=== PATIENT | female | born 1940 | race Caucasian/White ===

== ENCOUNTER 2016-08-21 08:53 | Emergency (ER) | payer OTHER ==
[~2016-08-21] VITALS: Ht 149.9 cm; Wt 47.5 kg
[~2016-08-21 08:53] MED LIST: AMITIZA8 MICROGRA PO; BUPROPION XL150 MG PO; CIPRO500 MG PO; DOCUSATE SODIU100 MG PO; DOXYCYCLINE HY100 MG PO; FLAGYL500 MG PO; HYDROXYZINE HCL25 MG PO; LIPITOR80 MG PO; NASONEX17 GM BOTH NARES; NEXIUM40 MG PO; PROAIR HFA8.5 GM IH; SERTRALINE HCL50 MG PO; SINGULAIR10 MG PO; TRAMADOL HCL50 MG PO; VALIUM5 MG PO; WELLBUTRIN XL150 MG PO; WELLBUTRIN XL300 MG PO; ZOFRAN ODT8 MG PO; ZOLOFT100 MG PO
[2016-08-21 09:48] LABS: EOSINOPHIL (%) 0.9 % (0-5); EOSINOPHIL COUNT 0.1 K/uL (0-0.3); HEMATOCRIT 41.7 % (36.0-46.0); IMMATURE GRANULOCYTE (%) 0.3 % (0.0-0.7); INSTRUMENT ABS NEUTROPHIL CT 5.3 K/uL; LYMPHOCYTE COUNT 1.3 K/uL (1.0-2.8); MCH 31.8 PG (29.0-34.0); MCHC 32.9 G/DL (30.0-36.0); MCV 96.8 FL (83-99); MEAN PLAT.VOLUME 8.6 uM^3 (9.5-12.4); MONOCYTE (%) 9.2 % (3-12); MONOCYTE COUNT 0.7 K/uL (0-0.8); NEUTROPHIL (%) 72.1 % (45-76); NEUTROPHIL COUNT 5.3 K/uL (1.8-6.4); PLATELET COUNT 193 K/uL (156-360); RBC DIS.WIDTH-CV 13.3 % (11.8-14.6); RBC DIS.WIDTH-SD 48.2 % (39-53); RED BLOOD COUNT 4.31 M/uL (3.80-5.20); WHITE BLOOD COUNT 7.4 K/uL (4.1-10.2)
[2016-08-21 09:58] LABS: CHLORIDE 106 mEq/L (99-109); POTASSIUM 4.1 mEq/L (3.7-5.4); SODIUM 140 mEq/L (136-147)
[2016-08-21 09:59] LABS: GLUCOSE 97 mg/dL (70-99)
[2016-08-21 10:01] LABS: ANION GAP 8 MEQ/L (2-14)
[2016-08-21 10:03] LABS: GFR ESTIMATE (CALCULATED) > 59 mL/min/
[2016-08-21 10:04] LABS: UREA NITROGEN (BUN) 5 mg/dL (9-23)
[2016-08-21 10:09] LABS: INFLUENZA A VIRAL ANTIGEN POSITIVE; INFLUENZA B VIRAL ANTIGEN POSITIVE
[2016-08-21] MEDS ORDERED: TAMIFLU75 MG PO (10:43)
[2016-08-21 10:56] VITALS: BP 117/72
== END 2016-08-21 10:57 | disposition home or self-care (01) ==
LOC: EME 08:53
PROVIDERS: Emergency Medicine
DX: J10.1 Influenza due to other identified influenza virus with other respiratory manifestations (principal); E78.5 Hyperlipidemia, unspecified; J45.909 Unspecified asthma, uncomplicated; K21.9 Gastro-esophageal reflux disease without esophagitis
CPT/HCPCS: 71020; 80048; 85025; 87502; 93005; 99281; 99284

== ENCOUNTER 2016-10-27 12:41 | Emergency (ER) | payer OTHER ==
[~2016-10-27] VITALS: Ht 152.4 cm; Wt 50.6 kg
[~2016-10-27 12:41] MED LIST changes: +TAMIFLU75 MG PO
[2016-10-27 14:07] LABS: HEMATOCRIT 41.1 % (36.0-46.0); MCH 31.6 PG (29.0-34.0); MCHC 32.6 G/DL (30.0-36.0); MCV 96.9 FL (83-99); MEAN PLAT.VOLUME 8.7 uM^3 (9.5-12.4); PLATELET COUNT 211 K/uL (156-360); RBC DIS.WIDTH-SD 49.5 % (39-53); RED BLOOD COUNT 4.24 M/uL (3.80-5.20); WHITE BLOOD COUNT 8.3 K/uL (4.1-10.2)
[2016-10-27 14:16] LABS: CHLORIDE 105 mEq/L (99-109); POTASSIUM 4.5 mEq/L (3.7-5.4); SODIUM 140 mEq/L (136-147)
[2016-10-27 14:17] LABS: GLUCOSE 105 mg/dL (70-99)
[2016-10-27 14:19] LABS: ANION GAP 6 MEQ/L (2-14)
[2016-10-27 14:21] LABS: GFR ESTIMATE (CALCULATED) > 59 mL/min/
[2016-10-27 14:22] LABS: UREA NITROGEN (BUN) 13 mg/dL (9-23)
[2016-10-27 14:36] LABS: ADD MIUA? YES; BILIRUBIN NEGATIVE; BLOOD NEGATIVE; COLOR YELLOW ((YELLOW)); GLUCOSE (STRIP) NEGATIVE; KETONES NEGATIVE; LEUKOCYTES SMALL; NITRITE NEGATIVE; PROTEIN (STRIP) NEGATIVE; SPECIFIC GRAVITY 1.013 (1.000-1.030); UROBILINOGEN 0.2 MG/DL (0.2-1.0)
[2016-10-27 14:41] LABS: BACTERIA RARE /HPF; EPITHELIAL CELLS RARE /HPF; MUCUS TRACE /LPF; RED BLOOD CELLS 0-5 /HPF (0-5); UCUL ADDED? NO; WHITE BLOOD CELLS 0-5 /HPF (0-5)
[2016-10-27] MEDS ORDERED: PYRIDIUM100 MG PO (15:14)
[2016-10-27] MEDS ORDERED: KEFLEX500 MG PO (15:14)
[2016-10-27 15:38] VITALS: BP 142/79
== END 2016-10-27 15:39 | disposition home or self-care (01) ==
LOC: EME 12:41
DX: R30.0 Dysuria (principal); E78.5 Hyperlipidemia, unspecified; K21.9 Gastro-esophageal reflux disease without esophagitis; J45.909 Unspecified asthma, uncomplicated; Z87.440 Personal history of urinary (tract) infections; Z91.040 Latex allergy status; Z88.2 Allergy status to sulfonamides; Z88.1 Allergy status to other antibiotic agents
CPT/HCPCS: 80048; 81003; 85027; 87086; 99281; 99283

== ENCOUNTER 2017-03-31 10:52 | Emergency (ER) | payer OTHER ==
[~2017-03-31] VITALS: Ht 152.4 cm; Wt 52.2 kg
[~2017-03-31 10:52] MED LIST changes: +KEFLEX500 MG PO; +PYRIDIUM100 MG PO
[2017-03-31 11:40] LABS: HEMATOCRIT 42.6 % (36.0-46.0); MCH 32.2 PG (29.0-34.0); MCHC 33.6 G/DL (30.0-36.0); MCV 95.9 FL (83-99); PLATELET COUNT 259 K/uL (156-360); RBC DIS.WIDTH-CV 14.2 % (11.8-14.6); RBC DIS.WIDTH-SD 50.1 % (39-53); RED BLOOD COUNT 4.44 M/uL (3.80-5.20); WHITE BLOOD COUNT 13.9 K/uL (4.1-10.2)
[2017-03-31 11:52] LABS: CHLORIDE 105 mEq/L (99-109); POTASSIUM 3.7 mEq/L (3.7-5.4); SODIUM 143 mEq/L (136-147)
[2017-03-31 11:54] LABS: GLUCOSE 141 mg/dL (70-99)
[2017-03-31 11:55] LABS: ANION GAP 10 MEQ/L (2-14)
[2017-03-31 11:58] LABS: GFR ESTIMATE (CALCULATED) > 59 mL/min/
[2017-03-31 11:59] LABS: UREA NITROGEN (BUN) 10 mg/dL (9-23)
[2017-03-31] MEDS ORDERED: TESSALON200 MG PO (12:16)
[2017-03-31 12:33] VITALS: BP 142/70
== END 2017-03-31 12:36 | disposition home or self-care (01) ==
LOC: EME 10:52
DX: J06.9 Acute upper respiratory infection, unspecified (principal); J45.909 Unspecified asthma, uncomplicated; E78.5 Hyperlipidemia, unspecified; K21.9 Gastro-esophageal reflux disease without esophagitis; F41.9 Anxiety disorder, unspecified; K22.70 Barrett's esophagus without dysplasia; Z91.040 Latex allergy status; Z88.2 Allergy status to sulfonamides; Z88.1 Allergy status to other antibiotic agents
CPT/HCPCS: 71020; 80048; 85027; 99281; 99284

== ENCOUNTER 2017-06-28 20:18 | Emergency (ER) | payer OTHER ==
[~2017-06-28] VITALS: Ht 152.4 cm; Wt 51.8 kg
[~2017-06-28 20:18] MED LIST changes: +TESSALON200 MG PO
[2017-06-28] MEDS ORDERED: VIBRAMYCIN100 MG PO (23:26)
[2017-06-28] MEDS ORDERED: ULTRACET1 TABLET PO (23:28)
[2017-06-28] MEDS ORDERED: MOTRIN600 MG PO (23:28)
[2017-06-28 23:51] VITALS: BP 159/90
== END 2017-06-28 23:52 | disposition home or self-care (01) ==
LOC: EME 20:18 → EXP 20:18
DX: L03.115 Cellulitis of right lower limb (principal); K21.9 Gastro-esophageal reflux disease without esophagitis; E78.5 Hyperlipidemia, unspecified; J45.909 Unspecified asthma, uncomplicated; F41.9 Anxiety disorder, unspecified; Z87.19 Personal history of other diseases of the digestive system; Z90.49 Acquired absence of other specified parts of digestive tract; Z89.202 Acquired absence of left upper limb, unspecified level; Z88.2 Allergy status to sulfonamides; Z88.1 Allergy status to other antibiotic agents
CPT/HCPCS: 93971; 99281; 99284

== ENCOUNTER 2017-09-06 08:49 | Emergency (ER) | payer OTHER ==
[~2017-09-06] VITALS: Ht 152.4 cm; Wt 50.5 kg
[~2017-09-06 08:49] MED LIST changes: +MOTRIN600 MG PO; +ULTRACET1 TABLET PO; +VIBRAMYCIN100 MG PO
[2017-09-06 09:33] LABS: HEMATOCRIT 40.3 % (36.0-46.0); MCH 32.4 PG (29.0-34.0); MCHC 34.7 G/DL (30.0-36.0); MCV 93.3 FL (83-99); PLATELET COUNT 231 K/uL (156-360); RBC DIS.WIDTH-SD 47.8 % (39-53); RED BLOOD COUNT 4.32 M/uL (3.80-5.20); WHITE BLOOD COUNT 8.4 K/uL (4.1-10.2)
[2017-09-06 09:58] LABS: ALBUMIN 3.8 G/DL (3.2-4.8); ALKALINE PHOSPHATASE 71 IU/L (3-129); ALT (GPT) 22 IU/L (3-49); AST (GOT) 23 IU/L (2-34); CHLORIDE 106 MEQ/L (99-109); CREATININE 0.5 MG/DL (0.6-1.3); GFR ESTIMATE (CALCULATED) > 59 mL/min/; GLUCOSE 91 mg/dL (70-99); POTASSIUM 4.7 MEQ/L (3.7-5.4); SODIUM 139 MEQ/L (136-147); TOTAL BILIRUBIN 0.6 MG/DL (0.0-1.0); TOTAL PROTEIN 6.6 G/DL (6.4-8.3); UREA NITROGEN (BUN) 10 mg/dL (9-23)
[2017-09-06 10:33] LABS: APPEARANCE CLEAR ((CLEAR)); BILIRUBIN NEGATIVE; BLOOD NEGATIVE; COLOR YELLOW ((YELLOW)); GLUCOSE (STRIP) NEGATIVE; KETONES NEGATIVE; LEUKOCYTES TRACE; NITRITE NEGATIVE; PROTEIN (STRIP) NEGATIVE; SPECIFIC GRAVITY 1.012 (1.000-1.030); UROBILINOGEN 0.2 MG/DL (0.2-1.0)
[2017-09-06 10:44] LABS: BACTERIA RARE /HPF; EPITHELIAL CELLS RARE /HPF; MUCUS TRACE /LPF; RED BLOOD CELLS 0-5 /HPF (0-5); UCUL ADDED? NO; WHITE BLOOD CELLS 0-5 /HPF (0-5)
[2017-09-06 11:17] LABS: TROP-I INTERPRETATION NEGATIVE; TROPONIN-I < 0.01 ng/mL (0.0-0.30)
[2017-09-06 13:03] LABS: TROP-I INTERPRETATION NEGATIVE; TROPONIN-I < 0.01 ng/mL (0.0-0.30)
[2017-09-06] MEDS ORDERED: ZOFRAN ODT4 MG PO (13:33)
[2017-09-06] MEDS ORDERED: BENTYL20 MG PO (13:33)
[2017-09-06] MEDS ORDERED: PERCOCET 5/31 TABLET PO (13:34)
[2017-09-06 14:27] VITALS: BP 125/67
== END 2017-09-06 14:27 | disposition home or self-care (01) ==
LOC: EME 08:49
PROVIDERS: Nurse Practitioner Family
DX: R10.32 Left lower quadrant pain (principal); R11.2 Nausea with vomiting, unspecified; I47.2 Ventricular tachycardia; E78.5 Hyperlipidemia, unspecified; F41.9 Anxiety disorder, unspecified; J45.909 Unspecified asthma, uncomplicated; K21.9 Gastro-esophageal reflux disease without esophagitis; Z88.1 Allergy status to other antibiotic agents; Z88.2 Allergy status to sulfonamides; Z91.040 Latex allergy status; Z89.202 Acquired absence of left upper limb, unspecified level
CPT/HCPCS: 71046; 74177; 80053; 81003; 84484; 85027; 93005; 99281; 99285; J2405; J3010; J7030

== ENCOUNTER 2017-09-08 13:40 | Emergency (ER) | payer OTHER ==
[~2017-09-08] VITALS: Ht 152.4 cm; Wt 50.3 kg
[~2017-09-08 13:40] MED LIST changes: +BENTYL20 MG PO; +PERCOCET 5/31 TABLET PO; +ZOFRAN ODT4 MG PO
[2017-09-08 15:47] LABS: HEMATOCRIT 39.7 % (36.0-46.0); HEMOGLOBIN 13.7 G/DL (11.9-15.5); MCH 32.6 PG (29.0-34.0); MCHC 34.5 G/DL (30.0-36.0); MCV 94.5 FL (83-99); PLATELET COUNT 209 K/uL (156-360); RBC DIS.WIDTH-CV 14.1 % (11.8-14.6); RBC DIS.WIDTH-SD 48.4 % (39-53); WHITE BLOOD COUNT 8.6 K/uL (4.1-10.2)
[2017-09-08 15:50] LABS: APPEARANCE CLEAR ((CLEAR)); BILIRUBIN NEGATIVE; BLOOD NEGATIVE; COLOR YELLOW ((YELLOW)); GLUCOSE (STRIP) NEGATIVE; KETONES NEGATIVE; LEUKOCYTES NEGATIVE; NITRITE NEGATIVE; PROTEIN (STRIP) NEGATIVE; SPECIFIC GRAVITY 1.012 (1.000-1.030); UROBILINOGEN 0.2 MG/DL (0.2-1.0)
[2017-09-08 16:02] LABS: CHLORIDE 109 mEq/L (99-109); SODIUM 145 mEq/L (136-147)
[2017-09-08 16:04] LABS: GLUCOSE 84 mg/dL (70-99); TOTAL PROTEIN 6.7 g/dL (6.4-8.3)
[2017-09-08 16:05] LABS: POTASSIUM 3.7 mEq/L (3.7-5.4)
[2017-09-08 16:06] LABS: TOTAL BILIRUBIN 0.7 mg/dL (0.0-1.0)
[2017-09-08 16:08] LABS: ALKALINE PHOSPHATASE 74 IU/L (3-129); CREATININE 0.6 mg/dL (0.6-1.3); GFR ESTIMATE (CALCULATED) > 59 mL/min/
[2017-09-08 16:09] LABS: UREA NITROGEN (BUN) 9 mg/dL (9-23)
[2017-09-08 16:10] LABS: AST (GOT) 25 IU/L (2-34)
[2017-09-08 16:11] LABS: ALT (GPT) 24 IU/L (3-49)
[2017-09-08] MEDS ORDERED: FLAGYL500 MG PO (16:44)
[2017-09-08 16:55] VITALS: BP 116/86
== END 2017-09-08 16:56 | disposition home or self-care (01) ==
LOC: EME 13:40
PROVIDERS: Physician Assistant
DX: R10.32 Left lower quadrant pain (principal); K21.9 Gastro-esophageal reflux disease without esophagitis; J45.909 Unspecified asthma, uncomplicated; E78.5 Hyperlipidemia, unspecified; F41.9 Anxiety disorder, unspecified; Z90.49 Acquired absence of other specified parts of digestive tract; Z88.2 Allergy status to sulfonamides; Z88.1 Allergy status to other antibiotic agents; Z91.040 Latex allergy status
CPT/HCPCS: 74022; 80053; 81003; 85027; 99281; 99284

== ENCOUNTER 2017-10-02 21:13 | Emergency (ER) | payer OTHER ==
[~2017-10-02] VITALS: Ht 152.4 cm; Wt 48.9 kg
[2017-10-02 21:38] LABS: HEMATOCRIT 40.7 % (36.0-46.0); HEMOGLOBIN 14.2 G/DL (11.9-15.5); MCH 32.9 PG (29.0-34.0); MCHC 34.9 G/DL (30.0-36.0); MCV 94.2 FL (83-99); PLATELET COUNT 235 K/uL (156-360); RBC DIS.WIDTH-CV 13.7 % (11.8-14.6); RBC DIS.WIDTH-SD 47.2 % (39-53); RED BLOOD COUNT 4.32 M/uL (3.80-5.20); WHITE BLOOD COUNT 7.8 K/uL (4.1-10.2)
[2017-10-02 21:48] LABS: ALBUMIN 4.2 g/dL (3.2-4.8)
[2017-10-02 21:49] LABS: CHLORIDE 109 mEq/L (99-109); SODIUM 142 mEq/L (136-147)
[2017-10-02 21:51] LABS: GLUCOSE 88 mg/dL (70-99)
[2017-10-02 21:53] LABS: TOTAL BILIRUBIN 0.8 mg/dL (0.0-1.0)
[2017-10-02 21:54] LABS: ALKALINE PHOSPHATASE 73 IU/L (3-129)
[2017-10-02 21:55] LABS: CREATININE 0.6 mg/dL (0.6-1.3); GFR ESTIMATE (CALCULATED) > 59 mL/min/
[2017-10-02 21:56] LABS: AST (GOT) 28 IU/L (2-34); UREA NITROGEN (BUN) 10 mg/dL (9-23)
[2017-10-02 21:57] LABS: ALT (GPT) 29 IU/L (3-49)
[2017-10-02 23:28] LABS: APPEARANCE CLEAR ((CLEAR)); BILIRUBIN NEGATIVE; BLOOD NEGATIVE; COLOR YELLOW ((YELLOW)); GLUCOSE (STRIP) NEGATIVE; KETONES NEGATIVE; LEUKOCYTES MODERATE; NITRITE NEGATIVE; PROTEIN (STRIP) NEGATIVE; SPECIFIC GRAVITY 1.017 (1.000-1.030); UROBILINOGEN 0.2 MG/DL (0.2-1.0)
[2017-10-02 23:33] LABS: BACTERIA NONE SEEN /HPF; EPITHELIAL CELLS RARE /HPF; MUCUS TRACE /LPF; RED BLOOD CELLS 0-5 /HPF (0-5); UCUL ADDED? YES
[2017-10-03] MEDS ORDERED: CIPRO500 MG PO (01:01)
[2017-10-03] MEDS ORDERED: FLAGYL500 MG PO (01:01)
[2017-10-03] MEDS ORDERED: NORCO 5/3251 TABLET PO (01:02)
[2017-10-03] MEDS ORDERED: ZOFRAN ODT4 MG PO (01:02)
[2017-10-03 01:41] VITALS: BP 111/77
== END 2017-10-03 01:41 | disposition home or self-care (01) ==
LOC: EME 21:13 → EXP 21:13
DX: K52.9 Noninfective gastroenteritis and colitis, unspecified (principal); N39.0 Urinary tract infection, site not specified; K21.9 Gastro-esophageal reflux disease without esophagitis; J45.909 Unspecified asthma, uncomplicated; E78.5 Hyperlipidemia, unspecified; Z89.202 Acquired absence of left upper limb, unspecified level; Z88.2 Allergy status to sulfonamides; Z88.1 Allergy status to other antibiotic agents; Z91.040 Latex allergy status
CPT/HCPCS: 74177; 80053; 81003; 85027; 87086; 99281; 99285; J2405; J3010; J7030